=== PATIENT | female | born 1945 | race Caucasian/White ===

== ENCOUNTER 2016-05-18 07:03 | Day surgery (SDC) | payer OTHER ==
[~2016-05-18] VITALS: Ht 160 cm; Wt 117.9 kg
[~2016-05-18 07:03] MED LIST: AMITRIPTYLINE100 MG PO; CLONIDINE HCL0.2 MG PO; COQ-10100 MG PO; COREG25 M1 PO; CRESTOR20 MG PO; DAILY MULTIPLE1 EACH PO; DILANTIN100 MG PO; FENOFIBRATE54 M1 PO; FUROSEMIDE80 MG PO; GLIPIZIDE5 MG PO; HYDRALAZINE HCL25 MG PO; IRON325 MG PO; ISOSORBIDE MONO60 MG PO; LANTUS 3 M100 UNITS1 SC; LO-DOSE ASPIRIN81 M2 PO; LORAZEPAM1 MG PO; LYRICA100 MG PO; MIRALAX255 GM PO; NOVOLOG PE100 UNITS/ SC; OMEPRAZOLE40 M1 PO; PERCOCET 5/31 TABLET PO; PROCARDIA XL90 MG PO; PROCRIT10000 UNI1 IV; RENAGEL800 MG PO; SENNA S TABLET1 EACH PO; SENOKOT,SENN1 TABLET PO; VOL-CARE RX TA1 EACH PO
[2016-05-18 07:53] LABS: POINT-OF-CARE METER ID UU14174212
[2016-05-18 08:02] LABS: HEMATOCRIT 28.3 % (36.0-46.0); MCH 28.1 PG (29.0-34.0); MCHC 30.7 G/DL (30.0-36.0); MCV 91.3 FL (83-99); MEAN PLAT.VOLUME 10.4 uM^3 (9.5-12.4); PLATELET COUNT 213 K/uL (156-360); RBC DIS.WIDTH-CV 15.7 % (11.8-14.6)
[2016-05-18] MEDS ORDERED: VOL-CARE RX TA1 EACH PO (08:13)
[2016-05-18 08:17] VITALS: BP 161/71
[2016-05-18 08:18] LABS: ANION GAP 11 MEQ/L (2-14); CHLORIDE 110 MEQ/L (99-109); POTASSIUM 3.6 MEQ/L (3.7-5.4); SAMPLE HEMOLYSIS CHECK 0; SAMPLE ICTERIC CHECK 0; SAMPLE LIPEMIA CHECK 0; SODIUM 144 MEQ/L (136-147)
[2016-05-18 08:23] LABS: GFR ESTIMATE (CALCULATED) 7 mL/min/; GLUCOSE 63 mg/dL (70-99); UREA NITROGEN (BUN) 61 mg/dL (9-23)
[2016-05-18 08:40] LABS: POINT-OF-CARE METER ID UU14174212
[2016-05-18 10:47] LABS: POINT-OF-CARE METER ID UU13113675
[2016-05-18 12:35] VITALS: BP 132/78
[2016-05-18 13:33] VITALS: BP 120/67
== END 2016-05-18 13:47 | disposition home or self-care (01) ==
LOC: SDC 07:03
PROVIDERS: Surgery
PROC: 0DNS4ZZ (ICD-10-PCS; principal; 2016-05-18)
DX: N19 Unspecified kidney failure (principal); Z53.09 Procedure and treatment not carried out because of other contraindication; I10 Essential (primary) hypertension; E11.9 Type 2 diabetes mellitus without complications; D64.9 Anemia, unspecified; E66.01 Morbid (severe) obesity due to excess calories; Z68.41 Body mass index [BMI] 40.0-44.9, adult; Z90.710 Acquired absence of both cervix and uterus; Z90.79 Acquired absence of other genital organ(s); I25.10 Atherosclerotic heart disease of native coronary artery without angina pectoris; Z98.61 Coronary angioplasty status; Z87.891 Personal history of nicotine dependence; Z79.4 Long term (current) use of insulin; Z79.82 Long term (current) use of aspirin; Z82.49 Family history of ischemic heart disease and other diseases of the circulatory system; Z82.3 Family history of stroke; Z84.1 Family history of disorders of kidney and ureter; Z91.041 Radiographic dye allergy status; Z88.8 Allergy status to other drugs, medicaments and biological substances
CPT/HCPCS: 80048; 82948; 85027; 93005; 94002; J0330; J0690; J1170; J2405; J2710; J3010

== ENCOUNTER 2016-07-01 08:52 | Day surgery (SDC) | payer OTHER ==
[~2016-07-01] VITALS: Ht 160 cm; Wt 104.5 kg
[~2016-07-01 08:52] MED LIST changes: +APRESOLINE25 MG PO; +CATAPRES0.1 MG PO; +FERRIC CITRATE210 MG PO; +ISOSORBIDE MONO30 MG PO; +LASIX40 MG PO; +MOVANTIK12.5 MG PO; +PROTONIX40 MG PO
[2016-07-01 09:53] VITALS: BP 106/47
[2016-07-01 10:05] LABS: HEMATOCRIT 31.8 % (36.0-46.0); MCH 31.6 PG (29.0-34.0); MCHC 31.8 G/DL (30.0-36.0); MCV 99.4 FL (83-99); MEAN PLAT.VOLUME 10.9 uM^3 (9.5-12.4); PLATELET COUNT 137 K/uL (156-360); RBC DIS.WIDTH-CV 18.7 % (11.8-14.6); RBC DIS.WIDTH-SD 66.5 % (39-53); WHITE BLOOD COUNT 7.2 K/uL (4.1-10.2)
[2016-07-01 10:35] LABS: ANION GAP 14 MEQ/L (2-14); CHLORIDE 100 MEQ/L (99-109); GFR ESTIMATE (CALCULATED) 6 mL/min/; GLUCOSE 177 mg/dL (70-99); POTASSIUM 4.4 MEQ/L (3.7-5.4); SAMPLE HEMOLYSIS CHECK 0; SAMPLE ICTERIC CHECK 0; SAMPLE LIPEMIA CHECK 0; SODIUM 139 MEQ/L (136-147); UREA NITROGEN (BUN) 30 mg/dL (9-23)
[2016-07-01 10:58] LABS: METH RESISTANT S AUREUS PCR POSITIVE (NEGATIVE)
[2016-07-01 11:00] LABS: PROBE CHECK PASS
[2016-07-01 15:05] VITALS: BP 130/60
[2016-07-01 16:00] VITALS: BP 128/67
== END 2016-07-01 16:10 | disposition home or self-care (01) ==
LOC: SDC 08:52
PROVIDERS: Surgery
PROC: 03180JD Bypass Left Brachial Artery to Upper Arm Vein with Synthetic Substitute, Open Approach (ICD-10-PCS; principal; 2016-07-01)
DX: I12.0 Hypertensive chronic kidney disease with stage 5 chronic kidney disease or end stage renal disease (principal); N18.6 End stage renal disease; E11.22 Type 2 diabetes mellitus with diabetic chronic kidney disease; E78.00 Pure hypercholesterolemia, unspecified; Z95.5 Presence of coronary angioplasty implant and graft; Z79.4 Long term (current) use of insulin; Z79.82 Long term (current) use of aspirin; Z87.891 Personal history of nicotine dependence; K21.9 Gastro-esophageal reflux disease without esophagitis; I45.10 Unspecified right bundle-branch block
CPT/HCPCS: 80048; 82948; 85027; 87641; C1768; C2628; J0131; J0690; J1170; J1644; J2250; J2405; J2720; J3010

== ENCOUNTER 2016-07-06 12:56 | Day surgery (SDC) | payer OTHER ==
[~2016-07-06] VITALS: Ht 160 cm; Wt 105.0 kg
[2016-07-06 13:27] VITALS: BP 108/47
[2016-07-06 13:55] LABS: HEMATOCRIT 34.3 % (36.0-46.0); MCH 30.5 PG (29.0-34.0); MCHC 31.2 G/DL (30.0-36.0); MCV 97.7 FL (83-99); PLATELET COUNT 209 K/uL (156-360); RBC DIS.WIDTH-SD 62.4 % (39-53); RED BLOOD COUNT 3.51 M/uL (3.80-5.20); WHITE BLOOD COUNT 9.5 K/uL (4.1-10.2)
[2016-07-06 13:59] LABS: CHLORIDE 99 mEq/L (99-109); POTASSIUM 4.2 mEq/L (3.7-5.4); SODIUM 136 mEq/L (136-147)
[2016-07-06 14:01] LABS: GLUCOSE 166 mg/dL (70-99)
[2016-07-06 14:02] LABS: ANION GAP 12 MEQ/L (2-14)
[2016-07-06 14:05] LABS: GFR ESTIMATE (CALCULATED) 11 mL/min/; UREA NITROGEN (BUN) 15 mg/dL (9-23)
[2016-07-06 14:26] LABS: POINT-OF-CARE METER ID UU14174212
[2016-07-06 15:13] LABS: METH RESISTANT S AUREUS PCR POSITIVE (NEGATIVE)
[2016-07-06 15:17] LABS: PROBE CHECK PASS
[2016-07-06 19:15] VITALS: BP 142/48
== END 2016-07-06 19:40 | disposition home or self-care (01) ==
LOC: SDC 12:56
PROVIDERS: Surgery
DX: T82.898A Other specified complication of vascular prosthetic devices, implants and grafts, initial encounter (principal); I12.0 Hypertensive chronic kidney disease with stage 5 chronic kidney disease or end stage renal disease; N18.6 End stage renal disease; Z99.2 Dependence on renal dialysis; E11.22 Type 2 diabetes mellitus with diabetic chronic kidney disease; E78.00 Pure hypercholesterolemia, unspecified; K21.9 Gastro-esophageal reflux disease without esophagitis; I45.10 Unspecified right bundle-branch block; Z79.4 Long term (current) use of insulin; Z95.5 Presence of coronary angioplasty implant and graft; Z79.01 Long term (current) use of anticoagulants; Z87.891 Personal history of nicotine dependence; Z79.899 Other long term (current) drug therapy
CPT/HCPCS: 80048; 82948; 85014; 85018; 85027; 87641; C1768; J0690; J1170; J1644; J2250; J2720; J3010